=== PATIENT | female | born 1935 | race Caucasian/White ===

== ENCOUNTER 2019-11-21 13:54 | Inpatient (IN) | payer MEDICARE, OTHER ==
[~2019-11-21] VITALS: Ht 157.5 cm; Wt 83.5 kg
--- NOTE | 2019-11-21 13:55 | NUR ---
PT BIB DAUGHTER FROM HOME C/O DIZZNESS FOR 2 WEEKS, PT IS AAOX2, NOT IN RESPIRATORY DISTRESS, HOOKED TO JOURNEYMAN LEVEL ACOUSTIC ANALYST, KEPT RESTED AND COMFORTABLE, WILL CONTINUE TO MONITOR.
--- NOTE | 2019-11-21 14:15 | NUR ---
AT BEDSIDE FOR EVAL.
--- NOTE | 2019-11-21 14:40 | NUR ---
ER PHLEB AT BEDSIDE FOR BLOOD DRAW.
[2019-11-21] MEDS ORDERED: MECLIZINE HCL 25 MG TABLET ONE (14:43)
--- NOTE | 2019-11-21 14:49 | NUR ---
Kevin jensen in [facility] - 11/21/19 at 1458 by MAUREEN PT IS WHEELED TO CT SCAN VIA [facility].
[2019-11-21 14:50] LABS: BASOPHILS % (AUTO) 0.5 % (0.0-2.0); EOSINOPHILS % (AUTO) 0.8 % (0.0-6.0); HEMATOCRIT 42 % (33-45); LYMPHOCYTES # (AUTO) 1.1 /CMM (0.8-4.8); LYMPHOCYTES % (AUTO) 22.3 % (20.0-44.0); MEAN CORPUSCULAR HGB CONC 33 g/dl (31.0-36.0); MEAN CORPUSCULAR VOLUME 83 fL (82-100); MONOCYTES # (AUTO) 0.3 /CMM (0.1-1.30); MONOCYTES % (AUTO) 6.5 % (2.0-12.0); NEUTROPHILS # (AUTO) 3.4 /CMM (1.8-8.9); NEUTROPHILS % (AUTO) 69.9 % (43.0-81.0); PLATELET COUNT (AUTO) 172 /CMM (150-450); RED BLOOD CELL COUNT(AUTO) 5.08 MIL/uL (4.0-5.2); WHITE BLOOD COUNT (AUTO) 4.8 K/uL (4.3-11.0)
--- NOTE | 2019-11-21 14:50 | NUR ---
PT IS WHEELED TO CT SCAN VIA [facility].
[2019-11-21] MEDS ORDERED: MECLIZINE HCL 12.5 MG TABLET PO ONE (15:00)
[2019-11-21 15:03] LABS: ALANINE AMINOTRANSFERASE 15 U/L (12-78); ALBUMIN 3.6 g/dL (3.4-5.0); ALKALINE PHOSPHATASE 54 U/L (46-116); ASPARTATE AMINOTRANSFERASE 15 U/L (15-37); CALCIUM, SERUM 9.6 mg/dL (8.5-10.1); CARBON DIOXIDE 31 mmol/L (21-32); CHLORIDE 105 mmol/L (98-107); CREATININE 0.8 mg/dL (0.6-1.3); GLUCOSE 104 mg/dL (74-106); LIPASE 199 U/L (73-393); POTASSIUM 4.2 mmol/L (3.5-5.1); SODIUM SERUM 142 mmol/L (136-145); TOTAL PROTEIN, SERUM 7.6 g/dL (6.4-8.2); UREA NITROGEN, BLOOD 14 mg/dL (7-18)
--- NOTE | 2019-11-21 15:31 | NUR ---
PT DAUGHTER MARCY [phone] FADY
[2019-11-21 15:35] LABS: APPEARANCE,URINE Clear (CLEAR); BILIRUBIN,URINE Negative (NEGATIVE); BLOOD, URINE Negative Ery/uL (NEGATIVE); COLOR,URINE Yellow (YELLOW); KETONES,URINE Negative (NEGATIVE); LEUKOCYTE ESTERASE ,URINE Negative (NEGATIVE); NITRITE, URINE Negative (NEGATIVE); PROTEIN,URINE Negative (NEGATIVE); UGLUCOSE Negative (NEGATIVE); UROBILINOGEN,URINE 0.2 EU/dL (0.2)
[2019-11-21] MEDS ORDERED: ASPI-1420 PO (16:36)
[2019-11-21] MEDS ORDERED: PANT40TA49 PO (16:36)
[2019-11-21] MEDS ORDERED: AMLO5TAB9 PO (16:36)
[2019-11-21] MEDS ORDERED: ERGO500014 PO (16:36)
--- NOTE | 2019-11-21 16:57 | NUR ---
PAGED [facility].
[2019-11-21] MEDS ORDERED: hydrALAZINE HCL IV 20 MG VIAL ONE (17:22)
--- NOTE | 2019-11-21 17:22 | NUR ---
PAGED EPIC SECOND ATTEMPT.
--- NOTE | 2019-11-21 17:27 | NUR ---
FOOD TRAY PROVIDED.
[2019-11-21] MEDS ORDERED: hydrALAZINE HCL IV 20 MG VIAL IV ONE (17:30)
[2019-11-21] MEDS ORDERED: Z GUARD REMEDY 2 OZ OINT TP PRN (18:00)
[2019-11-21] MEDS ORDERED: ONDANSETRON HCL/PF 4 MG/2 ML VIAL IVP PRN (18:00)
[2019-11-21] MEDS ORDERED: hydrALAZINE HCL 10 MG TABLET PO PRN (18:00)
[2019-11-21] MEDS ORDERED: ACETAMINOPHEN 325 MG TABLET PO PRN (18:00)
[2019-11-21] MEDS ORDERED: MAGNESIUM HYDROXIDE 30 ML UDC PO PRN (18:00)
[2019-11-21] MEDS ORDERED: MAG HYDROX/AL HYDROX/SIMETH 30 ML UDC PO PRN (18:00)
[2019-11-21] MEDS ORDERED: HYDROCODONE/APAP 5/325MG TABLET PO PRN (18:00)
[2019-11-21] MEDS ORDERED: ZOLPIDEM TARTRATE 5 MG TABLET PO PRN (18:00)
--- NOTE | 2019-11-21 18:02 | NUR ---
ROOM GIVEN 311-1 TELE
--- NOTE | 2019-11-21 18:08 | NUR ---
REPORT GIVEN TO CELESTE WALLIS FOR PAPITO.
[2019-11-21 18:40] VITALS: BP 177/85
--- NOTE | 2019-11-21 18:40 | NUR ---
rn notes Patient admitted from ER Tele, 84 y/old female on Dx of Dizziness. HTN. patient Patient A/O x4, refused pain at this time, was complaining of dizziness. Patient living alone visited daughter from [place]. V/S taken bp -177/85, p-90, r-20, o2-97 room air, t-98.3. Tele monitor on SR -83. Assist patient to the bathroom. Safety precaution maintained all the time, call light within to reach. Endorsed oncoming nurse for completion of admission on computer.
--- NOTE | 2019-11-21 19:50 | NUR ---
INFORMATION DEVELOPER OPENING NOTES RECEIVED PATIENT FROM MORNING SHIFT, ALERT AND ORIENTED X 3. VERBALLY RESPONSIVE AND ABLE TO FOLLOW DIRECTIONS. BREATHING REGULAR AND UNLABORED ON ROOM AIR. LEFT FOREARM G20 IV LINE INTACT AND PATENT, FLUSHING WELL WITH NO BLEEDING AND S/S OF INFILTRATION NOTED. ON CARDIAC MONITORING WITH NSR AT 87bpm. NO COMPLAINTS OF DIZZINESS OR PAIN/DISCOMFORT REPORTED AT THIS TIME. BED LOW AND LOCKED ON SEMI FOWLERS POSITION. CALL LIGHT IN REACH. WILL CONTINUE TO MONITOR.
[2019-11-21 20:00] VITALS: BP 149/78
--- NOTE | 2019-11-21 20:00 | NUR ---
PRINTING PLATE SETTER NOTES REFUSED DVT PUMPS PER PATIENT SHE OFTEN WALK GOING TO THE RESTROOM AND DOESN'T NEED IT. RISK AND BENEFITS EXPLAINED. MD NOTIFIED WITH NO ORDERS FOR ANTICOAGULANT AT THIS TIME. WILL CONTINUE TO MONITOR.
--- NOTE | 2019-11-21 21:15 | NUR ---
SPINE NURSE NOTES COMPLAINED OF 5/10 HEADACHE, NORCO 5/325 GIVEN BY MOUTH. NON-PHARMACOLOGICAL INTERVENTIONS PROVIDED. VITAL SIGNS WNL. WILL CONTINUE TO MONITOR.
--- NOTE | 2019-11-21 23:00 | NUR ---
PEOPLESOFT ADMINISTRATOR NOTES MOVED TO ROOM 309-1 ROOM MATE FROM ROOM 311 NEEDS ISOLATION AND PER HER FAMILY'S REQUEST.
[2019-11-22] VITALS: BP 132/62
--- NOTE | 2019-11-22 02:00 | NUR ---
SOCIAL CONTACT WORKER NOTES COMPLAINED OF INABILITY TO SLEEP, AMBIEN 5MG GIVEN BY MOUTH. NON-PHARMACOLOGICAL INTERVENTIONS PROVIDED. WILL CONTINUE TO MONITOR.
[2019-11-22 04:00] VITALS: BP 146/73
--- NOTE | 2019-11-22 06:15 | NUR ---
TELEVISION PARTS TESTER NOTES MRI CHECKLIST DONE AND SIGNED BY PATIENT, KEPT IN THE CHART.
--- NOTE | 2019-11-22 06:40 | NUR ---
PRESSURE TESTING TECHNICIAN CLOSING NOTES PATIENT IN BED ALERT AND ORIENTED X 3. AFEBRILE WITH NO S/S OF DISTRESS OBSERVED. LEFT FOREARM G20 IV LINE PATENT AND FLUSHING WELL. MAINTAINED ON CARDIAC MONITORING WITH NSR AT 68bpm. NO COMPLAINTS OF DIZZINESS OR PAIN/DISCOMFORT REPORTED AT THIS TIME. BED LOW AND LOCKED ON SEMI FOWLERS POSITION. CALL LIGHT IN REACH. WILL ENDORSE TO MORNING SHIFT FOR PAPITO.
[2019-11-22 07:03] LABS: BASOPHILS % (AUTO) 0.6 % (0.0-2.0); HEMATOCRIT 41 % (33-45); HEMOGLOBIN 13.3 g/dL (11.5-14.8); LYMPHOCYTES # (AUTO) 1.3 /CMM (0.8-4.8); LYMPHOCYTES % (AUTO) 27.6 % (20.0-44.0); MEAN CORPUSCULAR HGB CONC 33 g/dl (31.0-36.0); MEAN CORPUSCULAR VOLUME 83 fL (82-100); MONOCYTES # (AUTO) 0.5 /CMM (0.1-1.30); MONOCYTES % (AUTO) 10.1 % (2.0-12.0); NEUTROPHILS % (AUTO) 60.7 % (43.0-81.0); PLATELET COUNT (AUTO) 162 /CMM (150-450); RED BLOOD CELL COUNT(AUTO) 4.87 MIL/uL (4.0-5.2); WHITE BLOOD COUNT (AUTO) 4.9 K/uL (4.3-11.0)
[2019-11-22] MEDS ORDERED: PANTOPRAZOLE 40 MG TABLET.DR PO SCH (07:30)
--- NOTE | 2019-11-22 07:30 | NUR ---
received pt. this am alert and oriented x3.no specific complaints.reluctant to take meds.instructed to call for help when getting oob.
[2019-11-22 07:37] LABS: CALCIUM, SERUM 8.9 mg/dL (8.5-10.1); CREATININE 0.7 mg/dL (0.6-1.3); MAGNESIUM 2.3 mg/dL (1.8-2.4); PHOSPHORUS 4.5 mg/dL (2.5-4.9); POTASSIUM 3.7 mmol/L (3.5-5.1)
[2019-11-22 08:00] VITALS: BP 146/79
[2019-11-22] MEDS ORDERED: LISINOPRIL (20MG) 20 MG TABLET PO SCH (09:00)
[2019-11-22] MEDS ORDERED: ASPIRIN EC 81 MG TABLET.DR PO SCH (09:00)
[2019-11-22] MEDS ORDERED: AMLODIPINE BESYLATE 5 MG TABLET PO SCH (10:30)
--- NOTE | 2019-11-22 12:30 | NUR ---
dtr. calling often.
[2019-11-22 16:00] VITALS: BP 129/69
[2019-11-22] MEDS ORDERED: LISI-603 PO (16:39)
[2019-11-22 17:00] VITALS: BP 146/72
[2019-11-22 17:02] VITALS: BP 126/70
--- NOTE | 2019-11-22 17:45 | NUR ---
poli in and dc order given after troponin done and pt. up walking.vs taken after exercise.see graphic.all papers signed including belonging sheet.given rxs. taken to lobby by rotogravure press operator in w/c to be picked up by dtr.meds obtained from [facility] material carrier spoke to dtr. on phone.
[2019-11-27] MEDS ORDERED: ERGOCALCIFEROL (VITAMIN D 2) 50,000 UNIT CAPSULE PO SCH (09:00)
== END 2019-11-22 18:15 | disposition home health service (06) | DRG 305 ==
LOC: ER 13:57 → TELE 18:03 → MED 11-22 12:50
PROVIDERS: ADMIT Family Medicine; ATTEND Hospitalist
DX: I16.9 Hypertensive crisis, unspecified (principal); I10 Essential (primary) hypertension; K21.9 Gastro-esophageal reflux disease without esophagitis; G47.00 Insomnia, unspecified; E66.9 Obesity, unspecified; Z86.73 Personal history of transient ischemic attack (TIA), and cerebral infarction without residual deficits; Z98.890 Other specified postprocedural states; V89.2XXS Person injured in unspecified motor-vehicle accident, traffic, sequela; Z79.899 Other long term (current) drug therapy; Z68.33 Body mass index [BMI] 33.0-33.9, adult
CPT/HCPCS: 36415; 70450-TC; 71045-TC; 80048-TC; 80053-TC; 80061-TC; 81000-TC; 83690-TC; 83735-TC; 84100-TC; 84439-TC; 84443-TC; 84484-TC; 85025-TC; 85378-TC; 87081-TC; 93307-TC; G0378; J0360; J8597